=== PATIENT | female | born 1995 | race Caucasian/White ===

== ENCOUNTER 2019-01-25 18:49 | Emergency (ER) | payer BC ==
[~2019-01-25] VITALS: Ht 165.1 cm; Wt 62.6 kg
--- NOTE | 2019-01-25 19:02 | NUR ---
PT AMBULATED TO ER BED 01
[2019-01-25 19:04] VITALS: BP 116/73
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
--- NOTE | 2019-01-25 19:16 | NUR ---
TRIAGED AT BEDSIDE. DR. SPENCER AT BEDSIDE TO EVALUATE PT.
--- NOTE | 2019-01-25 19:21 | NUR ---
REPORT TO GIULIANO NAPIER
--- NOTE | 2019-01-25 19:21 | NUR ---
report recv'd from devan llanos
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
[2019-01-25] MEDS ORDERED: KETOROLAC 30 MG/ML VIAL IM ONE (19:25)
[2019-01-25 20:30] VITALS: BP 114/74
--- NOTE | 2019-01-25 20:30 | NUR ---
Patient discharged with v/s stable. Written and verbal after care instructions given and explained. Patient alert, oriented and verbalized understanding of instructions. Ambulatory with steady gait. All questions addressed prior to discharge. ID band removed. Patient advised to follow up with PMD. Rx of NAPROSYN AND FLEXERIL given. Patient educated on indication of medication including possible reaction and side effects. Opportunity to ask questions provided and answered.
== END 2019-01-25 20:30 | disposition home or self-care (01) ==
LOC: MED 18:49
DX: S70.02XA Contusion of left hip, initial encounter (principal); M54.2 Cervicalgia; R51 Headache; M25.512 Pain in left shoulder; Z88.0 Allergy status to penicillin; V89.2XXA Person injured in unspecified motor-vehicle accident, traffic, initial encounter; Y93.89 Activity, other specified; Y92.89 Other specified places as the place of occurrence of the external cause; Y99.8 Other external cause status
CPT/HCPCS: 71045; 73502; 81002; 81025; 96372; 99283; J1885